=== PATIENT | female | born 1990 | race Caucasian/White ===

== ENCOUNTER 2017-09-01 02:00 | Inpatient (IN) | payer OTHER ==
[~2017-09-01] VITALS: Ht 157.5 cm; Wt 82.6 kg
[2017-09-01] MEDS ORDERED: PRENATAL 19 TA1 EAC1 PO (02:15)
[2017-09-01] MEDS ORDERED: FOLIC ACID1 MG PO (02:16)
== END 2017-09-03 10:42 | disposition home or self-care (01) | DRG 775 ==
LOC: LDR 02:00 → OB/GYN 03:49
PROC: 10E0XZZ Delivery of Products of Conception, External Approach (ICD-10-PCS; principal; 2017-09-01)
PROC: 0KQM0ZZ Repair Perineum Muscle, Open Approach (ICD-10-PCS; 2017-09-01)
PROC: 10907ZC Drainage of Amniotic Fluid, Therapeutic from Products of Conception, Via Natural or Artificial Opening (ICD-10-PCS; 2017-09-01)
PROC: 4A033R1 Measurement of Arterial Saturation, Peripheral, Percutaneous Approach (ICD-10-PCS; 2017-09-01)
PROC: 4A1HXCZ Monitoring of Products of Conception, Cardiac Rate, External Approach (ICD-10-PCS; 2017-09-01)
DX: O70.1 Second degree perineal laceration during delivery (principal); Z37.0 Single live birth; O41.03X0 Oligohydramnios, third trimester, not applicable or unspecified; Z3A.39 39 weeks gestation of pregnancy